=== PATIENT | male | born 1955 | race Asian ===

== ENCOUNTER 2018-12-04 02:45 | Inpatient (IN) | payer OTHER ==
[2018-12-04] MEDS ORDERED: ACETAMINOPHEN 325 MG TAB PO (04:00)
[2018-12-04] MEDS ORDERED: ONDANSETRON 4 MG INJ IV (04:00)
[2018-12-04] MEDS ORDERED: morphine SULFATE/PF (2 MG/2 ML) SYG IV (04:00)
[2018-12-04 04:57] LABS: TROPONIN-I < 0.012 ng/ml (0.000-0.120)
[2018-12-04] MEDS: LISINOPRIL 10 MG TAB PO ×2 (05:42→08:46)
[2018-12-04] MEDS: AMLODIPINE 5 MG TAB PO ×2 (05:42→08:45)
[2018-12-04] MEDS: ASPIRIN 81 MG TAB PO (08:46)
[2018-12-04] MEDS ORDERED: AMLODIPINE 5 MG TAB PO ×3 (09:00→21:00)
[2018-12-04 09:03] LABS: TROPONIN-I < 0.012 ng/ml (0.000-0.120)
[2018-12-04 12:07] LABS: ADD MAN DIFF? NO
[2018-12-04 12:11] LABS: BASOPHILS % 0.3 % (0.0-2.0); EOSINOPHILS # 0.1 10^3/ul (0.0-0.5); EOSINOPHILS % 1.3 % (0.0-7.0); HEMATOCRIT 40.9 % (42.0-52.0); HEMOGLOBIN 13.4 g/dl (14.0-18.0); LYMPHOCYTES # 2.4 10^3/ul (0.8-2.9); LYMPHOCYTES % 26.1 % (15.0-51.0); MEAN CORPUSCULAR HEMOGLOBIN 29.2 pg (29.0-33.0); MEAN CORPUSCULAR HGB CONC 32.8 g/dl (32.0-37.0); MEAN CORPUSCULAR VOLUME 89.1 fl (82.0-101.0); MONOCYTE # 0.5 10^3/ul (0.3-0.9); MONOCYTES % 5.9 % (0.0-11.0); NEUTROPHIL # 6.1 10^3/ul (1.6-7.5); NEUTROPHILS % 66.2 % (39.0-77.0); PLATELET COUNT 217 10^3/UL (140-415); RED BLOOD COUNT 4.59 10^6/ul (4.70-6.10); RED CELL DISTRIBUTION WIDTH 13.8 % (11.5-14.5)
[2018-12-04 12:11] LABS: WHITE BLOOD COUNT 9.2 10^3/ul (4.8-10.8)
[2018-12-04 12:32] LABS: ALANINE AMINOTRANSFERASE 13 IU/L (13-69); ALBUMIN 3.7 g/dl (3.3-4.9); ALBUMIN/GLOBULIN RATIO 0.86; ALKALINE PHOSPHATASE 100 IU/L (42-121); ANION GAP 9 (5-13); ASPARTATE AMINO TRANSFERASE 19 IU/L (15-46); BILIRUBIN,INDIRECT 0.4 mg/dl (0-1.1); BILIRUBIN,TOTAL 0.4 mg/dl (0.2-1.3); BLOOD UREA NITROGEN 18 mg/dl (7-20); CALCIUM 8.7 mg/dl (8.4-10.2); CARBON DIOXIDE 30 mmol/L (21-31); CHLORIDE 102 mmol/L (97-110); CHOL/HDL RATIO 4.6 RATIO; CHOLESTEROL 134 mg/dl (100-200); CREATININE 0.75 mg/dl (0.61-1.24); Estimated GFR > 60 mL/min (>60); GLUCOSE 174 mg/dl (70-220); HDL CHOLESTEROL 29 mg/dl (30-78); LDL CHOLESTEROL,CALCULATED 89 mg/dl; POTASSIUM 4.1 mmol/L (3.5-5.1); SODIUM 141 mmol/L (135-144); TRIGLYCERIDES 82 mg/dl (0-149)
[2018-12-04 12:36] LABS: HEMOGLOBIN A1C 8.8 % (0-5.9)
[2018-12-04 12:45] LABS: D-DIMER 1031.56 ng/ml (<460)
[2018-12-04] MEDS: REGADENOSON 0.4 MG/5 ML SYG (13:25)
[2018-12-04] MEDS: IOHEXOL 100 ML (15:17)
[2018-12-04] MEDS: SOD CHLORIDE 0.9% 100 ML (15:17)
[2018-12-04] MEDS ORDERED: ATORVASTATIN 40 MG TAB PO (21:00)
[2018-12-05] MEDS ORDERED: LISINOPRIL 10 MG TAB PO (09:00)
== END 2018-12-04 18:35 | disposition home or self-care (01) | DRG 313 ==
LOC: TEL 02:45
PROVIDERS: Legal Medicine
DX: R07.9 Chest pain, unspecified (principal); F17.200 Nicotine dependence, unspecified, uncomplicated; I10 Essential (primary) hypertension; E11.9 Type 2 diabetes mellitus without complications; M17.11 Unilateral primary osteoarthritis, right knee
CPT/HCPCS: 71275; 78452; 80053; 80061; 83036; 84484; 85025; 85378; 93017; 93306